=== PATIENT | male | born 1985 | race African-American/Black ===

== ENCOUNTER 2017-06-01 06:04 | Day surgery (SDC) | payer OTHER ==
[2017-06-01] MEDS ORDERED: ceFAZolin 2 GM/50 ML 2 GM/50 ML BAG IV ONE (06:31)
[2017-06-01] MEDS ORDERED: LACTATED RINGERS 1,000 ML IV ONE ×2 (06:39→09:41)
[2017-06-01] MEDS ORDERED: EPINEPHrine 1 MG/1 ML 30 ML MDV IVP ONE ×3 (08:25)
[2017-06-01] MEDS ORDERED: BUPIVACAINE 0.25% PF 30 ML VIAL SUBQ ONE (10:30)
[2017-06-01] MEDS ORDERED: PROPOFOL 200 MG/20 ML VIAL IVP ONE (11:05)
[2017-06-01] MEDS ORDERED: ROPIVACAINE 0.5% PF 20 ML AMPULE EP ONE (11:05)
[2017-06-01] MEDS ORDERED: GLYCOPYRROLATE 1 MG/5 ML VIAL IVP ONE (11:05)
[2017-06-01] MEDS ORDERED: NEOSTIGMINE 1 MG/1 ML 10 ML MDV IVP ONE (11:05)
[2017-06-01] MEDS ORDERED: LIDOCAINE-MPF 2% 5 ML VIAL IM ONE (11:05)
[2017-06-01] MEDS ORDERED: DEXAMETHASONE 4 MG/ML VIAL IVP ONE (11:05)
[2017-06-01] MEDS ORDERED: MORPHINE 10 MG/ML VIAL IVP ONE (11:05)
[2017-06-01] MEDS ORDERED: ROCURONIUM 50 MG/5 ML VIAL IVP ONE (11:05)
[2017-06-01] MEDS ORDERED: fentaNYL 100 MCG/2 ML VIAL IVP ONE (11:05)
[2017-06-01] MEDS ORDERED: KETOROLAC 30 MG/ML VIAL ONE (11:36)
[2017-06-01] MEDS ORDERED: ACETAMINOPHEN 1,000 MG/100 ML 100 ML IV ONE (11:40)
[2017-06-01] MEDS ORDERED: ONDANSETRON 4 MG/2 ML VIAL ONE (13:15)
[2017-06-01] MEDS ORDERED: SCOPOLAMINE PATCH TOP ONE (14:15)
[2017-06-01 15:15] VITALS: BP 131/76
--- NOTE | 2017-06-02 11:40 | PROCEDURE REPORT ---
[address] [address] DATE OF SERVICE: 06/01/2017 Physician: Hao Hi MD DATE OF SURGERY: 06/01/2017 SURGEON: Hao Hi MD HISTOLOGY ASSISTANT: Patricia Gann MD PREOPERATIVE DIAGNOSIS: 1. Right shoulder instability. 2. Right shoulder labral tear. POSTOPERATIVE DIAGNOSIS: 1. Right shoulder instability. 2. Right shoulder labral tear. 3. Right shoulder GLAD lesion. PROCEDURES PERFORMED: 1. Right shoulder labral repair with capsulorrhaphy. CPT 45174. 2. Right shoulder glenoid chondroplasty. CPT 97662. 3. Right shoulder exam under anesthesia. POSTOPERATIVE PLAN: 1. 0-2 weeks sling and pillow, pendulum exercises 2. 2-6 weeks gentle passive range of motion, forward flexion to 120, adduction to 90, external rotation to 30. 3. 6-12 weeks active range of motion in all planes. 4. 3 months gradual strengthening. 5. 4 months introduce dynamic activities. 6. 5 to 6 months full activity. 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 He then had a shoulder dislocation in June of 2016 while he was attempting to pull buoys onto a boat. He was brought to [facility] and reduced. He continued to have instability despite Physical Therapy. His exam was positive for an anterior apprehension. Relocation and surprise. Risks, benefits and alternatives to surgery were discussed, risks including pain, bleeding, infection, damage to nearby structures, lack of central relief, need for further surgery, implant complication as well as anesthesia risks. He signed the written consent form. EXAMINATION UNDER ANESTHESIA FINDINGS: Forward flexion 170, abduction 150, external rotation to 80 degrees. Stable posterior to load shift, negative sulcus sign, grade 1 instability of load and shift anteriorly. IMPLANTS: 1. Arthrex 3.0 mm peek knotless suturetak x one. 2. Arthrex 2.9 mm all composite short push block x two 3. #2 FiberWire x two ANESTHESIA: General. ANTIBIOTICS: Ceftriaxone EBL: 10 mL SPECIMENS: None. COMPLICATIONS: None. DISPOSITION: Stable to PACU. DVT prophylaxis. Early frequent ambulation. SCDs while in the hospital. PROCEDURE IN DETAIL: The patient was admitted to preop on the day of the procedure. A written consent was signed. Consent was verified. All questions were answered and he desired to proceed. He was brought to the operating room and surrendered to anesthesia. Once general anesthesia had been obtained He was placed in the lateral decubitus position with the right arm up. All bony prominences were padded and the axillary roll was placed. Next, examination under anesthesia was then performed. He was then prepped and draped in the standard surgical fashion. A surgical timeout was held. We confirmed patient identity, procedure, allergies , antibiotics, and imaging. All were in agreement and we proceeded. A standard diagnostic arthroscopy was performed utilizing a posterior portal, an anterior portal, and an anterior superior portal. Both of those were created under direct visualization. DIAGNOSTIC ARTHROSCOPY FINDINGS: Type 1 SLAP lesion debrided. Biceps anchor intact without tear in the tendon. Subscap intact. Rotator cuff intact. No HAGL lesion. A Bankhart lesion was seen from 0-6 o'clock up until 9 o'clock position. A Tunde complex was also seen with a cord-like middle glenohumeral ligament and a sublabral foramen. This complex was at the superior border of the labral tear. GLAD lesions were also seen anteriorly measuring 5 mm on the glenoid rim and approximately 15 mm in the area of the Bankhart lesion. These were debrided back to a stable base and anchors were placed into them to cover them with a capsular shift. Posterior labrum was intact. Humeral head cartilage was intact. Following the completion of the diagnostic arthroscopy, we proceeded to prepare the labral tear. Utilizing arthroscopic spatula I developed the interval between the labrum and the glenoid , being sure to not amputate the labrum as we turned the corner inferiorly. All scarred down tissue was released off of the glenoid down to and visualizing the subscapularis muscle fibers. A pineapple rasp was used in the interval between the glenoid and the labrum to create a bed of bleeding bone on the glenoid. The shaver and small biter was used to debride the GLAD lesions. When the preparation was complete I was able freely manipulate the capulolabral tissue and reduce it onto the glenoid. Once satisfied with the preparation, I then created a percutaneous portal with standard technique at the 7 o'clock position. This was used to place a knotless suturetak anchor at the 6 o'clock location, through the posterior portal, I used a 45 degree suture lasso to create a good inferior capsulorrhaphy. We then passed suture and attempted to use the standard knotless technique. We found that we ended up with a simple pass around the tissue and then through a loop attached to the knot. This resulted in knotless technique not securing the tissue adequately to the glenoid. I then decided to incorporate the suture from this anchor into the next anchor at the 430 position I then used a tissue grasper and reduced the capsular labral tissue superiorly onto the glenoid. I then used a suture passer through the mid glenoid portal to create a nice capsular shift for our next anchor location. Satisfied with that location, I placed those two sutures as well as the additional suture from the 6 o'clock portal into a pushlock and drilled the pushlock, placed the anchor at the 4:30 position and tensioned the tissue properly and secured the anchor. This was found to produce a very nice capsular shift and a very stable reduction onto the glenoid. I then placed another pushlock at the 9 o'clock position with an adequate inferior capsular shift. After the placement of these three anchors, I probed the repair and found that it was stable and the bumper had been recreated. The anterior IGHL fibers had been reduced and tensioned well. Final images were taken. Balanced suspension was removed that the humeral head was centered nicely on the glenoid. I then removed all arthroscopic instruments, and closed the skin with a subcutaneous monocryl. 20 mL of 0.25 Marcaine was placed. The patient was awaken, a sling was put on him after a sterile dressing was applied and he was transferred to the recovery room. Dictating Provider: Hao Hi MD GC/CHALO TD: 06/01/2017 13:31 MAYRA
== END 2017-06-01 06:05 | disposition home or self-care (01) ==
LOC: SDS 06:04
PROVIDERS: ATTEND Orthopaedic Surgery
PROC: 0RJJ4ZZ Inspection of Right Shoulder Joint, Percutaneous Endoscopic Approach (ICD-10-PCS; 2017-06-01)
PROC: 0RQJ4ZZ Repair Right Shoulder Joint, Percutaneous Endoscopic Approach (ICD-10-PCS; principal; 2017-06-01 07:30)
DX: M25.311 Other instability, right shoulder (principal); S43.491A Other sprain of right shoulder joint, initial encounter; S43.432A Superior glenoid labrum lesion of left shoulder, initial encounter
CPT/HCPCS: 29806; 29822; C1713; J0131; J0690; J3490; J7120